=== PATIENT | female | born 1995 | race Caucasian/White ===

== ENCOUNTER → 2022-02-24 10:32 | Outpatient (BNVA) | payer MEDICAID, SELFPAY | PROVIDERS: Family Provider Nurse Practitioner; PCP Emergency Medicine; Visit Provider Counselor Professional | DX: F41.1 Generalized anxiety disorder (principal); F41.0 Panic disorder [episodic paroxysmal anxiety] | CPT/HCPCS: 90791 ==

== ENCOUNTER → 2022-04-05 09:38 | Outpatient (BNVA) | payer MEDICAID, SELFPAY | PROVIDERS: Family Provider Nurse Practitioner; PCP Nurse Practitioner Family; Referring Provider Nurse Practitioner Family; Visit Provider Otolaryngology | DX: R42 Dizziness and giddiness (principal); R26.81 Unsteadiness on feet; J34.2 Deviated nasal septum; K12.1 Other forms of stomatitis; F43.22 Adjustment disorder with anxiety; F17.210 Nicotine dependence, cigarettes, uncomplicated | CPT/HCPCS: 99203; 99204 ==

== ENCOUNTER → 2022-05-30 13:10 | Outpatient (BNVA) | payer MEDICAID, SELFPAY | PROVIDERS: Family Provider Nurse Practitioner; PCP Nurse Practitioner Family; Visit Provider Internal Medicine | DX: R07.89 Other chest pain (principal); R06.02 Shortness of breath | CPT/HCPCS: 93005; 99203; 99204 ==

== ENCOUNTER 2022-08-11 13:16 | Outpatient (CLI) | payer MEDICAID, SELFPAY ==
--- NOTE | 2022-08-11 13:45 | USCV_ITS ---
Carolina Martinez Age: 26 Gender: F : 1995 Exam Date: 08/11/2022 14:06 Ordering Phys: Brian Brantley M.D ([email or web address]) Technologist: MARCUS Exam Location: [facility] – [place] Indication: SHORTNESS OF BREATH BP: 104 / 67 HR: 62 Rhythm: Sinus Technical Quality: Adequate MEASUREMENTS (Male / Female) Normal Values 2D ECHO LVOT Diameter 2.0 cm LV Ejection Fraction MOD 2C 62.5 % LV Ejection Fraction 2C AL 62.5 % LA Diameter 3.4 cm LA Width 3.4 cm LA Height 4.1 cm RA Width 2.7 cm RA Height 4.2 cm Aorta at Sinotubular Diameter 2.3 cm IVC Diameter 1.4 cm M-MODE Aortic Annulus Diameter 2.7 cm LA Ao Ratio MM 1.2 MV E Point Septal Separation 0.3 cm DOPPLER AV Peak Velocity 118.0 cm/s LVOT Peak Velocity 97.0 cm/s AV Area Cont Eq vti 2.8 cm squared AV Area Cont Eq pk 2.6 cm squared MV Peak Velocity 101.0 cm/s MV Area PHT 4.0 cm squared Mitral E to A Ratio 1.7 MV E' Velocity 55.5 cm/s Mitral E to MV E' Ratio 5.8 Mitral E to LV E' Lateral Ratio 4.9 Mitral E to LV E' Septal Ratio 7.1 TR Peak Velocity 242.6 cm/s TR Peak Gradient 23.5 mmHg TR Mean Velocity 185.1 cm/s TR Mean Gradient 15.1 mmHg TR Velocity Time Integral 72.5 cm TV Peak E Velocity 72.0 cm/s Right Atrial Pressure 3.0 mmHg Pulmonary Artery Systolic Pressu 26.5 mmHg PV Peak Velocity 103.0 cm/s RV Acceleration Time 0.2 s RV Ejection Time 0.3 s RV AcT/ET 0.5 FINDINGS Left Ventricle Normal left ventricular size, systolic function and wall thickness, with no regional wall motion abnormalities. Left ventricular ejection fraction is estimated at 65 %. Normal diastolic function. Right Ventricle Normal right ventricular size and systolic function. Right ventricular systolic pressure 26.5 mmHg. Right Atrium Normal right atrial size. Left Atrium Normal left atrial size. Mitral Valve Structurally normal mitral valve. No mitral valve stenosis. Trace mitral valve regurgitation. Aortic Valve Structurally normal trileaflet aortic valve. No aortic valve stenosis. No aortic valve regurgitation. Tricuspid Valve Structurally normal tricuspid valve. No tricuspid valve stenosis. Trace tricuspid valve regurgitation. Pulmonic Valve Structurally normal pulmonic valve. No pulmonary valve stenosis. No pulmonary valve regurgitation. Pericardium No pericardial effusion. Aorta Normal size aortic root and proximal ascending aorta. IVC Normal IVC dimension with >50% respiratory change of the inferior vena cava. CONCLUSIONS 1. Normal left ventricular size, systolic function and wall thickness, with no regional wall motion abnormalities. Left ventricular ejection fraction is estimated at 65 %. Normal diastolic function. 2. No significant valvular abnormality. 3. No prior similar studies to compare. Gladis Roman MD (Electronically Signed) Final Date: 12 August 2022 10:47 S
== END 2022-08-11 13:17 | disposition home or self-care (01) ==
LOC: RAD 13:17
PROVIDERS: Family Provider Nurse Practitioner; PCP Nurse Practitioner Family; Visit Provider Internal Medicine
DX: R06.02 Shortness of breath (principal)
CPT/HCPCS: 93306

== ENCOUNTER 2022-09-15 13:05 | Outpatient (CLI) | payer MEDICAID, SELFPAY ==
--- NOTE | 2022-09-15 | ECG_ITS ---
[facility] Test Date: 2022-09-15 Pat Name: Carolina Martinez Department: Room: Gender: Female Lead Software Architect: : 1995 Requested By: Brian Brantley Order Number: [id number] Perez MD: Brian Brantley M.D. Interpretive Statements NAME OF STUDY: TREADMILL STRESS TEST INDICATION: [Chest Pain, ] EXERCISE DATA: The patient was exercised by Stephan protocol. Baseline heart rate was 76 beats per minute. Baseline blood pressure was 133/92 millimeters of mercury. Target heart rate was 165 beats per minute. Maximum heart rate achieved was 172 bpm which was 104% of the target heart rate. Maximum blood pressure was 169/82 millimeters of mercury. Total exercise time was 9 minutes. Maximum METs achieved was 10.2. The reason for ending the test was maximal effort achieved. The patient complained of shortness of breath during the stress test, which then resolved at the end of the test. ELECTROCARDIOGRAM: BASELINE: Showed sinus rhythm, normal axis, no significant ST-T changes at the baseline noted. [] EXERCISE: At the peak exercise level, [] No significant ST-T changes suggestive of ischemia noted. [] RECOVERY: During the recovery period, heart rate dropped appropriately. No significant ST-T changes in the recovery suggestive of ischemia noted. [] CONCLUSION: 1. Exercise capacity good 2. Heart rate response was appropriate 3. Blood pressure response was appropriate 4. Symptoms not suggestive of ischemia. 5. Exercise stress test is normal and is negative for ischemia. Electronically Signed On 10-01-2022 13:32:19 RN HOME HEALTH by Brian Brantley M.D. [email or web address]
[2022-09-15 13:09] VITALS: BMI 34.7
[2022-09-15 14:30] VITALS: BP 144/99; PULSE 98
== END 2022-09-15 13:06 | disposition home or self-care (01) ==
LOC: CDL 13:06
PROVIDERS: PCP Nurse Practitioner Family; Visit Provider Internal Medicine
DX: R07.9 Chest pain, unspecified (principal)
CPT/HCPCS: 93017

== ENCOUNTER 2023-04-12 09:50 | Outpatient (CLI) | payer MEDICAID, SELFPAY ==
--- NOTE | 2023-04-12 11:04 | P.DIET_ITS ---
Reason for Visit: 30750, Z76.89, E66.9 Person Interviewed: Patient Medical History, Labs and Background: Carolina fainted at work November 2021 and hit front and back of registers. Afterwards she had lots of anxiety and started meds which led to weight gain. In june or july 2022 she was diagnosed with Alpha Gal, after c/o fatigue, migraines and stomach pains. Height: 5 ft 2 in Weight: 194 lb BMI: 35.6 kg/m2 UBW: Pt would like to be 150-160 lbs IBW: 110 lbs Weight History: She described herself as a scrawny and active kid. Before the of her daughter in 2004 her wt was 116-120 lbs. She got up to 168 lbs and then was around 130-140 lbs around D&C she had with her son. Concerns and Goals: Carolina cannot get the weight off and wants to get down to around 150-160 lbs. Per her report her family is obese and there is hx of DM and HTN. Sleep Hygiene: Currently she gets 6-7 hours a night - it is hit or miss. She goes to be around 11-11:30 and is up between 6:30-8:30. During the night she is up 1-3x to the bathroom or she is hot or needs to move her legs. 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 Other Feeding Issues: Alpha Gal dx in 06/2022. Food Allergies and Sensitivities: She is not aware of other food allergies, but is sensitive to food textures. Meds, Supplements & Other: She takes Pristiq and amitriptyline and allergy meds, and occasionally CBD oil. 24 Hour Recall: Breakfast Time: 10:30am water and [address] Thompson Snack Time: Lunch Time: Snack Time: Dinner Time: 5:00 pm sweet tea/ 2 chx strips/ 1 slice garlic bread (POPRAGEOUS) Snack Time: 10:30 pm Smirnoff Ice and then at midnight a bowl of Ramen Eating Out: Carolina said she eats out rarely - maybe 1-3x/month. Soda vs Milk vs Water: Her weakness is Dr. Thompson and she can drink 3-5 cans/day. She also drinks water, iced tea, milk, and cranberry grape juice. Additional Comments: Currently Carolina only eats 1-2x/day. She also told me she likes to cook and her favorites are [place] dishes she learned from her aunts. Having recently moved, she feels like she can settle in and life won't be as stressful. 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 Her 8 year old daughter seems to be somewhat of a stress - she described her as having an attitude . Recommendations: Assessment:Ever since the of her daughter and her accident at work which led to taking meds, Carolina has gained wt and had a difficult time losing it. Because of familial traits, she knows she is pre- disposed and wants to lose. Being diagnosed with Alpha Gal made things complicated, but she seems to be managing it. Diagnosis: Excessive energy intake r/t patterns and soda intake AEB BMI of 35.6 kg/m2. Intervention: We discussed making 6-8 hours sleep a priority as well as increasing activity. Besides working on her fathers farm, we talked about finding something she enjoys and can do, like walking, for 15-20 minutes, 3- 5x/week. The purpose would be more or a workout, but also a time to do whatever she wanted - listen to music/podcast or just have time to herself to think. We also talked about cutting back to 1 Dr. Thompson/day and making that a treat. She drinks a lot of water already. Next we discussed eating at least 3x/day and having protein/ CHO/ fat in the meal or snack she makes. Before leaving, she told me she likes to plan and she had already said she liked to cook - so i recommended putting up notes or lists on her fridge that stated what she would be fixing that week. She said she doesn't have anyone to encourage her or keep her accountable - maybe her Mom. On the sheet where her goals were written, I included my contact information so she could email or call with follow up questions. Coding Level of Care Code Nutrition/Individ/Init 60 min
== END 2023-04-12 09:51 | disposition home or self-care (01) ==
PROVIDERS: PCP Nurse Practitioner Family; Visit Provider Nurse Practitioner Family
DX: Z71.3 Dietary counseling and surveillance (principal); E66.9 Obesity, unspecified; Z68.35 Body mass index [BMI] 35.0-35.9, adult
CPT/HCPCS: 97802

== ENCOUNTER → 2023-08-07 13:37 | Outpatient (BNVA) | payer MEDICAID, SELFPAY | PROVIDERS: PCP Nurse Practitioner; Visit Provider Physician Assistant | DX: M22.2X1 Patellofemoral disorders, right knee (principal) | CPT/HCPCS: 73560; 73565 ==

== ENCOUNTER → 2023-08-27 14:26 | Outpatient (BNVA) | payer OTHER, MEDICAID, SELFPAY | PROVIDERS: PCP Nurse Practitioner; Visit Provider Nurse Practitioner | DX: Z00.00 Encounter for general adult medical examination without abnormal findings (principal); Z83.2 Family history of diseases of the blood and blood-forming organs and certain disorders involving the immune mechanism | CPT/HCPCS: 81241 ==

== ENCOUNTER → 2023-09-10 15:20 | Outpatient (BNVA) | payer MEDICAID, SELFPAY | PROVIDERS: PCP Nurse Practitioner; Visit Provider Nurse Practitioner | DX: R35.0 Frequency of micturition (principal); J20.9 Acute bronchitis, unspecified | CPT/HCPCS: 81000 ==

== ENCOUNTER → 2023-10-26 15:15 | Outpatient (BNVA) | payer MEDICAID, SELFPAY | PROVIDERS: PCP Nurse Practitioner; Visit Provider Nurse Practitioner | DX: R10.9 Unspecified abdominal pain (principal) | CPT/HCPCS: 81000 ==

== ENCOUNTER → 2023-11-03 16:22 | Outpatient (BNVA) | payer MEDICAID, SELFPAY | PROVIDERS: PCP Nurse Practitioner; Visit Provider Nurse Practitioner Family | DX: N39.0 Urinary tract infection, site not specified (principal); R10.9 Unspecified abdominal pain | CPT/HCPCS: 81000; 87086 ==

== ENCOUNTER → 2023-12-13 15:13 | Outpatient (BNVA) | payer MEDICAID, SELFPAY | PROVIDERS: PCP Nurse Practitioner; Visit Provider Nurse Practitioner | DX: R10.9 Unspecified abdominal pain (principal) | CPT/HCPCS: 80053; 81000; 87086 ==

== ENCOUNTER 2023-12-14 06:55 | Outpatient (CLI) | payer MEDICAID, SELFPAY ==
--- NOTE | 2023-12-14 07:00 | US_ITS ---
WS: [id number] Complete ABDOMINAL ULTRASOUND HISTORY: R10.9 - Unspecified abdominal pain COMPARISON: None available. Liver: 15.2 cm in length. Normal size liver and echogenicity. No bile duct dilatation or mass. Portal Vein: Normal hepatopetal flow with monophasic waveform. Gallbladder: Normally distended gallbladder with no stones or wall thickening. CBD: 0.4 cm Pancreas: Normal size and echogenicity. Right kidney: 9.3 cm x 4.5 x 5.4 cm. Cortex:1.0 cm. Normal size and echogenicity. No hydronephrosis or mass. Left kidney: 10.0 cm x 4.7 cm x 4.7 cm. Cortex: 1.0 cm. Normal size and echogenicity. No hydronephrosis or mass. Spleen: 11.1 cm. Normal. Aorta and IVC: Unremarkable abdominal aorta and IVC. Impression: Normal complete abdomen ultrasound.
== END 2023-12-14 06:56 | disposition home or self-care (01) ==
LOC: RAD 06:56
PROVIDERS: PCP Nurse Practitioner; Visit Provider Nurse Practitioner
DX: R10.9 Unspecified abdominal pain (principal)
CPT/HCPCS: 76700

== ENCOUNTER → 2024-01-02 16:18 | Outpatient (BNVA) | payer SELFPAY | PROVIDERS: PCP Nurse Practitioner; Visit Provider Emergency Medicine | DX: M22.2X1 Patellofemoral disorders, right knee; M21.061 Valgus deformity, not elsewhere classified, right knee | CPT/HCPCS: 73562 ==

== ENCOUNTER → 2024-05-08 12:49 | Outpatient (BNVA) | payer OTHER, SELFPAY | PROVIDERS: PCP Nurse Practitioner; Visit Provider Emergency Medicine | DX: Z20.2 Contact with and (suspected) exposure to infections with a predominantly sexual mode of transmission (principal); N89.8 Other specified noninflammatory disorders of vagina | CPT/HCPCS: 81000; 87491; 87591; 87661 ==

== ENCOUNTER → 2024-05-09 12:49 | Outpatient (BNVA) | payer OTHER, SELFPAY | PROVIDERS: PCP Nurse Practitioner; Visit Provider Emergency Medicine | DX: Z20.2 Contact with and (suspected) exposure to infections with a predominantly sexual mode of transmission (principal); N89.8 Other specified noninflammatory disorders of vagina | CPT/HCPCS: 87491; 87591 ==